=== PATIENT | male | born 1955 | race Caucasian/White ===

== ENCOUNTER 2020-12-28 15:25 | Emergency (ER) | payer SELFPAY ==
[2020-12-28 16:44] LABS: BASO # 0.03 K/mm3 (0.02-0.10); EOS # 0.02 K/mm3 (0.04-0.40); EOS % 0.1 % (0.0-4.0); HEMATOCRIT 48.7 % (42.0-52.0); HEMOGLOBIN 16.3 g/dL (13.5-18.0); LYMPH# 0.64 K/mm3 (1.50-4.00); MEAN CELL VOLUME 96 fl (78-100); MEAN CORPUSCULAR HEMOGLOBIN 32 pg (27-31); MEAN CORPUSCULAR HGB CONC 34 g/dL (33-37); MEAN PLATELET VOLUME 9.7 fl (7.4-10.4); MONO # 0.64 K/mm3 (0.20-0.80); NEU # 13.38 K/mm3 (1.40-6.50); PLATELET COUNT 211 K/mm3 (130-400); RED CELL DISTRIBUTION WIDTH 12.7 % (11.5-14.5); WHITE BLOOD COUNT 14.8 K/mm3 (4.8-10.8)
[2020-12-28 16:50] LABS: ALBUMIN 3.7 g/dL (3.4-4.8); POTASSIUM 4.2 mmol/L (3.5-5.1)
[2020-12-28 16:51] LABS: CALCIUM 9.3 mg/dL (8.3-10.5)
[2020-12-28 16:52] LABS: TOTAL PROTEIN 7.1 g/dL (6.2-8.1)
[2020-12-28 16:54] LABS: TOTAL BILIRUBIN 0.8 mg/dL (0.2-1.2)
[2020-12-28 17:06] LABS: TROPONIN-I 0.56 ng/mL (<0.030)
[2020-12-28 17:09] LABS: PARTIAL THROMBOPLASTIN TIME 25.1 SECONDS (21.0-32.0)
[2020-12-28 17:27] LABS: D-DIMER 7.58 mg/L FEU (0.15-0.50)
[2020-12-28 19:17] VITALS: BP 115/84
== END 2020-12-28 19:28 | disposition short-term general hospital (02) ==
LOC: ED 15:25
PROVIDERS: Family Medicine
DX: R06.03 Acute respiratory distress (principal); F17.210 Nicotine dependence, cigarettes, uncomplicated; Z20.822 Contact with and (suspected) exposure to COVID-19
CPT/HCPCS: J0696; J1644; J2060; J7030

== ENCOUNTER → 2022-11-25 | Outpatient (CLI) | payer MEDICARE, MEDICAID ==
[2022-11-25 16:49] LABS: ALBUMIN 4.5 g/dL (3.4-4.8); POTASSIUM 3.9 mmol/L (3.5-5.1)
[2022-11-25 16:51] LABS: CALCIUM 9.7 mg/dL (8.3-10.5)
[2022-11-25 16:52] LABS: TOTAL PROTEIN 7.3 g/dL (6.2-8.1)
[2022-11-25 16:54] LABS: TOTAL BILIRUBIN 0.9 mg/dL (0.2-1.2)
== END ==
LOC: LAB 16:27
PROVIDERS: Internal Medicine
DX: Z00.00 Encounter for general adult medical examination without abnormal findings (principal); Z23 Encounter for immunization; C32.9 Malignant neoplasm of larynx, unspecified; I10 Essential (primary) hypertension; E78.2 Mixed hyperlipidemia; R06.00 Dyspnea, unspecified; K90.9 Intestinal malabsorption, unspecified; E55.9 Vitamin D deficiency, unspecified; E03.9 Hypothyroidism, unspecified

== ENCOUNTER 2023-07-31 18:25 | Emergency (ER) | payer MEDICARE, MEDICAID ==
[~2023-07-31 18:25] MED LIST: ALBUTEROL2.5 MG/3 M IH; Albuterol/Ipratropium 3 MG-0.5 MG/3 ML Neb Soln IH ONE; GUAIFEN-CODEIN118 ML PO; LEVOTHYROXINE0.05 MG PO; LISINOPRIL20 MG PO; MORGIDOX 1X100100 MG PO; NS 1,000 ML IV ONE; PREDNISONE20 M1 PO; Potassium Chloride 100 ML IV ONE; ROSUVASTATIN CA20 MG PO; VITAMIN D21250 MCG PO
[2023-09-02 04:56] LABS: ALBUMIN 4.5 g/dL (3.4-4.8); CALCIUM 9.9 mg/dL (8.3-10.5); CARBON DIOXIDE 19 mmol/L (23-31); GLUCOSE 200 mg/dL (75-110); HEMATOCRIT 38.5 % (42.0-52.0); MEAN PLATELET VOLUME 10.5 fl (7.4-10.4); RED BLOOD COUNT 4.2 M/mm3 (4.20-5.60); SODIUM 135 mmol/L (136-145); TOTAL PROTEIN 7.2 g/dL (6.2-8.1); WHITE BLOOD COUNT 9.8 K/mm3 (4.8-10.8)
[2023-09-02 04:57] LABS: ALT/SGPT 24 U/L (0-55); AST-SGOT 29 U/L (5-34); MAGNESIUM 1.97 mg/dL (1.60-2.60); TOTAL BILIRUBIN 0.8 mg/dL (0.2-1.2); TROPONIN-I < 0.030 ng/mL (0.00-0.033)
[2023-09-02 04:58] LABS: D-DIMER 0.22 mg/L FEU (0.15-0.50)
[2023-09-02 04:58] LABS: PH-URINE 5.5 (5.0 - 8.0); URINE APPEARANCE CLOUDY (CLEAR); URINE BILIRUBIN 1+ (NEGATIVE); URINE BLOOD 1+ (NEGATIVE); URINE COLOR DARK YELLOW (YELLOW); URINE PROTEIN(semi-quant) 3+ (NEGATIVE)
[2023-09-02 04:59] LABS: URINE GLUCOSE NEGATIVE (NEGATIVE); URINE KETONE NEGATIVE (NEGATIVE); URINE LEUKOCYTE ESTERASE NEGATIVE (NEGATIVE); URINE NITRATE NEGATIVE (NEGATIVE)
== END 2023-08-01 00:55 | disposition short-term general hospital (02) ==
LOC: ED 18:25
PROVIDERS: Physician Assistant
DX: N17.9 Acute kidney failure, unspecified (principal); E87.6 Hypokalemia
CPT/HCPCS: J3480; J7030

== ENCOUNTER → 2023-08-04 | Outpatient (CLI) | payer MEDICARE, MEDICAID ==
[~2023-08-04] MED LIST changes: -Albuterol/Ipratropium 3 MG-0.5 MG/3 ML Neb Soln IH ONE; -NS 1,000 ML IV ONE; -Potassium Chloride 100 ML IV ONE
[2023-09-25 13:37] LABS: ALBUMIN 4.1 g/dL (3.4-4.8); MAGNESIUM 1.27 mg/dL (1.60-2.60); TOTAL BILIRUBIN 0.7 mg/dL (0.2-1.2); TOTAL PROTEIN 6.5 g/dL (6.2-8.1)
[2023-09-25 13:40] LABS: BASO # 0.03 K/mm3 (0.02-0.10); EOS # 0.03 K/mm3 (0.04-0.40); EOS % 0.5 % (0.0-4.0); HEMOGLOBIN 11.8 g/dL (13.5-18.0); LYMPH# 1.41 K/mm3 (1.50-4.00); MEAN CELL VOLUME 90 fl (78-100); MEAN CORPUSCULAR HEMOGLOBIN 31 pg (27-31); MEAN CORPUSCULAR HGB CONC 35 g/dL (33-37); MEAN PLATELET VOLUME 10.2 fl (7.4-10.4); MONO # 0.45 K/mm3 (0.20-0.80); NEU # 3.97 K/mm3 (1.40-6.50); PLATELET COUNT 155 K/mm3 (130-400); RED BLOOD COUNT 3.79 M/mm3 (4.20-5.60); WHITE BLOOD COUNT 5.9 K/mm3 (4.8-10.8)
== END ==
LOC: LAB 12:30
PROVIDERS: Internal Medicine
DX: I10 Essential (primary) hypertension (principal)

== ENCOUNTER → 2023-09-07 | Outpatient (CLI) | payer MEDICARE, MEDICAID ==
[2023-09-07 10:22] LABS: CALCIUM 9.4 mg/dL (8.3-10.5)
[2023-09-07 10:29] LABS: MAGNESIUM 1.88 mg/dL (1.60-2.60)
[2023-09-07 10:37] LABS: BASO # 0.03 K/mm3 (0.02-0.10); EOS # 0.08 K/mm3 (0.04-0.40); EOS % 1.3 % (0.0-4.0); HEMATOCRIT 37.4 % (42.0-52.0); HEMOGLOBIN 12.6 g/dL (13.5-18.0); LYMPH# 1.29 K/mm3 (1.50-4.00); MEAN CELL VOLUME 91 fl (78-100); MEAN CORPUSCULAR HEMOGLOBIN 31 pg (27-31); MEAN CORPUSCULAR HGB CONC 34 g/dL (33-37); MEAN PLATELET VOLUME 10.7 fl (7.4-10.4); MONO # 0.62 K/mm3 (0.20-0.80); NEU # 3.93 K/mm3 (1.40-6.50); PLATELET COUNT 184 K/mm3 (130-400); RED BLOOD COUNT 4.09 M/mm3 (4.20-5.60); RED CELL DISTRIBUTION WIDTH 13.1 % (11.5-14.5)
== END ==
LOC: LAB 10:05
PROVIDERS: Internal Medicine
DX: I10 Essential (primary) hypertension (principal); E83.42 Hypomagnesemia

== ENCOUNTER → 2023-12-22 | Outpatient (CLI) | payer MEDICARE, MEDICAID | LOC: LAB 09:37 | DX: Z86.19 Personal history of other infectious and parasitic diseases (principal) ==